=== PATIENT | female | born 1950 | race Caucasian/White ===

== ENCOUNTER → 2016-10-07 | Outpatient (CLI) | payer MEDICARE, OTHER ==
[~2016-10-07] MED LIST: ADVAIR 2501 DISK W/D; ALLEGRA; ALLOPURINOL300 MG PO; AMARYL PO; AMBIEN; AMBIEN10 MG PO; BACTRIM DS TABL1 TAB; FENOFIBRATE160 MG PO; FLAGYL PO; FLUOXETINE HCL20 M1 PO; FOSAMAX70 MG PO; GABAPENTIN300 M2 PO; INDOCIN SR75 MG PO; JANUMET XR 1001 EACH PO; LEVAQUIN PO; LEXAPRO; LISINOPRIL-HCTZ1 T14 PO; LISINOPRIL10 MG PO; METOPROLOL SUCC50 MG PO; MEVACOR; PRILOSEC20 M1 PO; PROZAC PO; VICODIN 5/500 T1 TAB; VITAMIN D32000 UNIT PO; ZESTORETIC 20/11 TAB; ZETIA PO
--- NOTE | ~2016-10-07 | MY11 ---
[facility] A Service of [facility] RADIOLOGY TEXT RESULTS PATIENT: ALEN BENSON LOCATION: [facility] : 48 UNIT #: [id number] AGE: [address]: Stephanie Noel MD SEX: F ORDER DR: [id number] [facility] [address] [place], [place] [address] [id number] O MR#: [id number] Acc #: [id number] NAME: ALEN BENSON. : 1950 SEX: F STUDY DATE/TIME: 10/07/2016 7:40 UNIT: [facility] ROOM: STUDY DESCRIPTION: MY Mammogram Screening Dig Yadiel Attending Physician: Stephanie Noel M.D. Referring Physician: Stephanie Noel M.D. Ordering Physician: Stephanie Noel M.D. Primary Care Physician: Stephanie Noel M.D. MEDICAL IMAGING REPORT This report is preliminary unless electronic signature is present EXAM Digital screening mammogram 10/07/2016. HISTORY 66-year-old woman. No risk elevation. Annual screen. COMPARISON Mammograms date to 02/02/2005 with most recent screening comparison 04/02/2015. Digital imaging of each breast was completed utilizing a two-view examination of each breast in craniocaudal and mediolateral-oblique projections. Review and interpretation of digital mammograms include a second review in conjunction with FDA-approved CAD device. There is a normal parenchymal presentation bilaterally consistent with the patient's age. There are no breast masses imaged and no parenchymal asymmetry is visualized. There are no suspicious microcalcifications and I see no focal architectural disturbance. IMPRESSION Negative screening digital mammogram. One-year followup recommended. Patients over the age of 40 are entered into a reminder system with target due date for the next mammogram. A result letter will also be sent to the patient. BIRADS: 1 Negative ADDENDUM Breast parenchyma is fatty replaced. Dictated by... Tesfaye Clay M.D. [facility] A Service of [facility] RADIOLOGY TEXT RESULTS PATIENT: ALEN BENSON LOCATION: [facility] : 48 UNIT #: [id number] AGE: [address]: Stephanie Noel MD SEX: F ORDER DR: THIS IS AN ELECTRONICALLY VERIFIED REPORT Tesfaye Clay M.D. at 10/07/2016 11:27 AM Santos TD: 10/07/2016 09:56 JOB #: [id number] MEDICAL IMAGING REPORT Page 1 of 1 COPY
== END | disposition home or self-care (01) ==
LOC: CWCC 07:23
DX: Z12.31 Encounter for screening mammogram for malignant neoplasm of breast (principal); R92.8 Other abnormal and inconclusive findings on diagnostic imaging of breast
CPT/HCPCS: G0202

== ENCOUNTER 2016-12-31 11:03 | Emergency (ER) | payer MEDICARE, OTHER ==
[~2016-12-31] VITALS: Ht 170.2 cm; Wt 81.6 kg
--- NOTE | ~2016-12-31 | EKG ---
PATIENT: ALEN BENSON UNIT #: [id number] Ventricular Rate: 73 BPM Atrial Rate: 73 BPM P-R Interval: 152 ms QRS Duration: 96 ms Q-T Interval: 414 ms QTC Calculation(Bezet): 456 ms P [place]: 37 degrees Calculated R [place]: 20 degrees Calculated T [place]: 48 degrees Diagnosis Line: Normal sinus rhythm Diagnosis Line: Normal ECG Diagnosis Line: No previous ECGs available Diagnosis Line: Confirmed by ANDREW MCDANIELS MD ([id number]) on 01/01/2017 Diagnosis Line: 5:49:08 PM INTERPRETING MD: ENEDELIA MULLER
--- NOTE | ~2016-12-31 | CR72 ---
[facility] A Service of [facility] RADIOLOGY TEXT RESULTS PATIENT: ALEN BENSON LOCATION: [facility] : 49 UNIT #: [id number] AGE: [address]: Keon Hinton MD SEX: F ORDER DR: [id number] [facility] [address] [place], [place] [address] [id number] E MR#: [id number] Acc #: [id number] NAME: ALEN BENSON. : 1950 SEX: F STUDY DATE/TIME: 12/31/2016 UNIT: [facility] ROOM: STUDY DESCRIPTION: CR Chest Single View Portable Attending Physician: Keon Hinton M.D. Ordering Physician: Keon Hinton M.D. Primary Care Physician: Stephanie Noel M.D. MEDICAL IMAGING REPORT This report is preliminary unless electronic signature is present EXAM Chest portable 12/31/2016 1153 hours HISTORY 66-year-old woman complaining of 2-day history of anterior chest pain with shortness of air. Former smoker with history of hypertension. COMPARISON 05/26/2008 FINDINGS Portable upright chest demonstrates heart size within normal limits. Mediastinal and hilar contours are normal. Lungs demonstrate mild elevation of left hemidiaphragm. There is likely an element of underlying emphysema. There are calcified granulomata. There is no definite pneumonia, edema or nodule. There is vague density superior to the medial aspect of the left-sided ECG lead minimally asymmetric from the density associated with the right-sided ECG lead. I would favor this is artifact related to the ECG lead, but given the asymmetry, I would suggest repeat PA film with change in position of the ECG leads to exclude an underlying nodule. IMPRESSION 1. Mild emphysematous change with calcified granulomatous change similar to 05/26/2008. There is no definite pneumonia or edema. There is new mild elevation of the left hemidiaphragm. 2. There is vague asymmetric density superior to the left-sided ECG lead asymmetric from that seen at the right ECG lead. I would favor that this is artifact related to the lead placement itself; however given the asymmetry, I would recommend a repeat film with change in position of the left and right ECG leads. An underlying nodule cannot be completely excluded on this film. [facility] A Service of [facility] RADIOLOGY TEXT RESULTS PATIENT: ALEN BENSON LOCATION: [facility] : 48 UNIT #: [id number] AGE: [address]: Keon Hinton MD SEX: F ORDER DR: STAT * RESULT Dictated by... Daisha Guadalupe M.D. THIS IS AN ELECTRONICALLY VERIFIED REPORT Daisha Guadalupe M.D. at 12/31/2016 12:52 PM ERI/daniel TD: 12/31/2016 12:14 JOB #: [id number] MEDICAL IMAGING REPORT Page 1 of 1 COPY
--- NOTE | ~2016-12-31 | CR72 ---
[facility] A Service [facility] RADIOLOGY TEXT RESULTS PATIENT: ALEN BENSON LOCATION: [facility] : 48 UNIT #: [id number] AGE: [address]: Keon Hinton MD SEX: F ORDER DR: [id number] [facility] [address] [place], [place] [address] [id number] E MR#: [id number] Acc #: [id number] NAME: ALEN BENSON. : 1950 SEX: F STUDY DATE/TIME: 12/31/2016 13:24 UNIT: [facility] ROOM: STUDY DESCRIPTION: CR Chest Single View Portable Attending Physician: Keon Hinton M.D. Ordering Physician: Keon Hinton M.D. Primary Care Physician: Stephanie Noel M.D. MEDICAL IMAGING REPORT This report is preliminary unless electronic signature is present EXAM Chest x-ray, single view, portable. HISTORY Chest pain and short of air for 2 days. History of essential hypertension. Former smoker, lung biopsy history. COMMENT Single frontal portable view of the chest timed 13:24, 12/31/2016. COMPARISON Compared to earlier film this morning. FINDINGS There was a question of a density on the earlier film where the cardiac leads were placed. On the current study with the leads removed, it appears that this was an artifact associated with the leads. No acute infiltrate, acute congestive failure, pleural effusion or pneumothorax. Heart size normal. Mild upper lung emphysematous change is noted. IMPRESSION 1. The cardiac leads have been removed, and the density noted on the prior study left mid-lung is no longer seen. It was, therefore, consistent with artifact. 2. Mild emphysematous changes, otherwise, no active disease. Dictated by... Susan Caballero M.D. THIS IS AN ELECTRONICALLY VERIFIED REPORT Susan Caballero M.D. at 01/01/2017 8:23 AM [facility] A Service [facility] RADIOLOGY TEXT RESULTS PATIENT: ALEN BENSON LOCATION: [facility] #: [id number] : 48 UNIT #: [id number] AGE: [address]: Keon Hinton MD SEX: F ORDER DR: Nicole TD: 12/31/2016 16:26 JOB #: [id number] MEDICAL IMAGING REPORT Page 1 of 1 COPY
[~2016-12-31 11:03] MED LIST changes: -AMARYL PO; -GABAPENTIN300 M2 PO; -JANUMET XR 1001 EACH PO; -LISINOPRIL10 MG PO; -METOPROLOL SUCC50 MG PO; -VITAMIN D32000 UNIT PO
[2016-12-31] MEDS ORDERED: JANUMET XR 1001 EACH PO (11:18)
[2016-12-31] MEDS ORDERED: AMARYL PO (11:18)
[2016-12-31] MEDS ORDERED: LISINOPRIL10 MG PO (11:19)
[2016-12-31] MEDS ORDERED: METOPROLOL SUCC50 MG PO (11:20)
[2016-12-31] MEDS ORDERED: VITAMIN D32000 UNIT PO (11:20)
[2016-12-31] MEDS ORDERED: GABAPENTIN300 M2 PO (11:21)
[2016-12-31 11:59] LABS: POC - CKMB <1.0 ng/mL (0.0-7.9); POC - TROPONIN <0.05 ng/mL (<=0.05)
[2016-12-31 12:11] LABS: BASOPHIL% 0.4 % (0-2.5); EOSINOPHIL# 0.1 X10e3 (0-0.7); EOSINOPHIL% 1.3 % (0.0-7.0); HEMATOCRIT 41.1 % (35.0-45.0); HEMOGLOBIN 13.5 gm/dL (12.0-16.0); LYMPHOCYTE# 1.1 X10e3 (1.0-3.5); LYMPHOCYTE% 20.3 % (17.0-45.0); MEAN CELL VOLUME 91.4 FL (83-96); MEAN CORPUSCULAR HGB CONC 32.8 g/dL (30-36); MEAN PLATELET VOLUME 8.7 FL (6.5-11.5); MONOCYTE# 0.4 X10e3 (0-1.0); NEUTROPHIL# 3.7 X10e3 (1.5-7.1); PLATELET COUNT 140 X10e3 (140-420); RED CELL DISTRIBUTION WIDTH 15.5 % (11.0-15.5); WHITE BLOOD COUNT 5.2 X10e3 (4.0-10.5)
[2016-12-31 12:12] LABS: DIFF IND NO
[2016-12-31 12:36] LABS: ALBUMIN SERUM 4.5 g/dL (3.5-5.0); BILIRUBIN, DIRECT 0.1 mg/dL (0.0-0.2); BILIRUBIN,INDIRECT 0.6 mg/dL (0.0-0.9); BILIRUBIN,TOTAL 0.7 mg/dL (0.2-2.0); BUN/CREATININE RATIO 18.18; CALCIUM SERUM 9.6 mg/dL (8.4-10.2); CREATININE SERUM 1.1 mg/dL (0.6-1.4); GLOM FILT RATE Estimated 51.9 mL/min (>60); POTASSIUM 4.5 mmol/L (3.5-5.1); PROTEIN TOTAL SERUM 7.9 g/dL (6.0-8.3)
[2016-12-31 13:48] LABS: POC - CKMB 1.1 ng/mL (0.0-7.9); POC - TROPONIN <0.05 ng/mL (<=0.05)
== END 2016-12-31 14:51 | disposition home or self-care (01) ==
LOC: CED 11:03
PROVIDERS: Emergency Medicine
DX: R07.89 Other chest pain (principal); E11.9 Type 2 diabetes mellitus without complications; I10 Essential (primary) hypertension
CPT/HCPCS: 36415; 71010; 80048; 80076; 82553; 84484; 85025; 85379; 93005; 99285